=== PATIENT | female | born 1995 | race Caucasian/White ===

== ENCOUNTER 2017-06-12 14:22 | Emergency (ER) | payer BC ==
[2017-06-12] MEDS ORDERED: Ketorolac 60 MG/2 ML SDV IM ONE (14:56)
[2017-06-12] MEDS ORDERED: Cyclobenzaprine 10 MG Tab PO SCH (15:00)
--- NOTE | 2017-06-12 15:11 | EDM.PDOC ---
ED HPI GENERAL MEDICAL PROBLEM - General Chief Complaint: Back Pain or Injury Stated Complaint: BACK PAIN Time Seen by Provider: 06/12/17 14:27 Source of Information: Reports: Patient, Family (Mom) History Limitations: Reports: No Limitations - History of Present Illness INITIAL COMMENTS - FREE TEXT/NARRATIVE: Patient presents with low back pain that started 6 days ago. She denies any recent injury, prolonged sitting or heavy lifting. 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 She hasn't had this problem before. She denies any pain or numbness down either leg. She has a 7- month-old at home but isn't nursing. Left Back Pain Score (Numeric/FACES): 8 - Related Data Allergies Allergy/AdvReac Type Severity Reaction Status Date / Time No Known Allergies Allergy Verified 06/12/17 14:36 Home Meds: Home Meds Levonorgestrel-Ethin Estradiol [Marlissa-28 Tablet] 06/12/17 [History] Past Medical History - Past Health History Medical/Surgical History: Denies Medical/Surgical History Social & Family History - Tobacco Use Smoking Status *Q: Never Smoker - Caffeine Use Caffeine Use: Reports: None - Recreational Drug Use Recreational Drug Use: No ED ROS GENERAL - Review of Systems Review Of Systems: See Below Constitutional: Denies: Fever, Chills, Malaise, Weakness HEENT: Denies: Throat Pain Respiratory: Denies: Shortness of Breath Cardiovascular: Denies: Chest Pain, Syncope GI/Abdominal: Denies: Abdominal Pain, Constipation, Diarrhea, Nausea, Vomiting : Denies: Dysuria Musculoskeletal: Denies: Neck Pain, Shoulder Pain, Arm Pain, Leg Pain Skin: Denies: Cyanosis, Jaundice, Mottled, Pallor, Diaphoresis Neurological: Denies: Confusion, Dizziness, Headache (did earlier this morning but gone now), Seizure, Syncope, Trouble Speaking, Difficulty Walking Psychiatric: Denies: Agitation, Anxiety, Confusion ED EXAM,LOWER BACK PAIN/INJURY - Physical Exam Exam: See Below Exam Limited By: No Limitations General Appearance: Alert, WD/WN, No Apparent Distress Eye Exam: Bilateral Eye: EOMI, Normal Inspection, PERRL Ears: Normal External Exam, Hearing Grossly Normal Nose: Normal Inspection, No Blood Throat/Mouth: Normal Inspection, Normal Lips, Normal Voice, No Airway Compromise Head: Atraumatic, Normocephalic Neck: Normal Inspection, Full Range of Motion Respiratory/Chest: No Respiratory Distress, Lungs Clear, Normal Breath Sounds, No Accessory Muscle Use Cardiovascular: Regular Rate, Rhythm, No Murmur GI/Abdominal: No Distention Back Exam: Full Range of Motion, Paraspinal Tenderness (left lumbosacral region) . No: CVA Tenderness (L), CVA Tenderness (R) Extremities: Normal Inspection Neurological: Alert, Normal Mood/Affect, No Motor/Sensory Deficits, Oriented x 3 Psychiatric: Normal Affect, Normal Mood Skin Exam: Warm, Dry, Intact, Normal Color, No Rash Course - Vital Signs Last Recorded V/S: Last Vital Signs Temp 98.0 F 06/12/17 14:41 Pulse 98 06/12/17 14:41 Resp 18 06/12/17 14:41 BP 135/82 06/12/17 14:41 Pulse Ox 99 06/12/17 14:41 - Orders/Labs/Meds Orders: Active Orders 24 hr Category Date Time Status Cyclobenzaprine [Flexeril] Med 06/12/17 15:00 Ordered 10 mg PO TID Medication Orders Cyclobenzaprine HCl (Flexeril) 10 mg PO TID EVA Stop: 06/14/17 09:01 Meds: Medications Generic Name Dose Route Start Last Admin Trade Name Freq PRN Reason Stop Dose Admin Cyclobenzaprine HCl 10 mg 06/12/17 15:00 Flexeril PO 06/14/17 09:01 TID EVA Discontinued Medications Generic Name Dose Route Start Last Admin Trade Name Freq PRN Reason Stop Dose Admin Ketorolac Tromethamine 60 mg 06/12/17 14:56 Toradol IM 06/12/17 14:57 ONETIME ONE - Re-Assessments/Exams Free Text/Narrative Re-Assessment/Exam: 06/12/17 15:11 Discussed with patient that a heating pad will likely help soothe and relax the muscles also. If this doesn't resolve over a week or two, or if it recurs, she should follow up with her PCP to see about getting a referral to PT. 06/12/17 16:26 Pain is still only down from 8 to 6 and patient would like to try something else. Will give 1 mg of Dilaudid IM. 06/12/17 16:41 Pain started dropping quickly with the Dilaudid and patient feels like she is ready to go home and sleep. Her mother will drive her. Patient discharged in stable condition. Departure - Departure Time of Disposition: 16:40 Disposition: Home, Self-Care 01 Condition: Good Clinical Impression: Lumbosacral pain - Discharge Information Instructions: Back Pain, Adult, [id number] Additional Instructions: 1. Drink 8 cups of water daily. 2. Take the Flexeril as directed. Avoid driving for 8 hours after taking. 3. Take Ibuprofen 600 mg every 8 hours as needed but wait until tomorrow to begin since you had Toradol in ER. 4. Follow up with your PCP if this persists or recurs as a referral to physical therapy will be helpful for this longer term. - My Orders Last 24 Hours: My Active Orders 06/12/17 15:00 Cyclobenzaprine [Flexeril] 10 mg PO TID - Assessment/Plan Last 24 Hours: My Active Orders 06/12/17 15:00 Cyclobenzaprine [Flexeril] 10 mg PO TID
[2017-06-12 15:30] VITALS: BP 117/54
[2017-06-12] MEDS ORDERED: HYDROmorphone 1 MG/ML Syringe IVPUSH ONE (16:22)
[2017-06-12] MEDS ORDERED: HYDROmorphone 1 MG/ML Syringe IM ONE (16:26)
== END 2017-06-12 16:47 | disposition home or self-care (01) ==
LOC: KA.ED 14:22
DX: M54.5 Low back pain (principal)
CPT/HCPCS: 96372; 99283; A9270; J1170; J1885